=== PATIENT | female | born 1985 | race Caucasian/White ===

== ENCOUNTER 2016-04-01 14:12 | Emergency (ER) | payer MEDICAID ==
[~2016-04-01] VITALS: Wt 75.0 kg
[2016-04-01] MEDS ORDERED: IBUP-1542 PO (15:13)
--- NOTE | 2016-04-01 18:01 | ERD ---
ER Documentation Chief Complaint Date/Time DATE: 04/01/16 TIME: 17:58 Chief Complaint CHETS PAIN X 3 DAYS HPI 32-year-old female complaining of left-sided chest pain. Pain first onset 2 days ago, there were sharp extends from left axilla to left anterior chest. Pain will last about 1 minutes each, 5-6 episodes per day. Patient reports feeling increased stress at home and work. Denies shortness of breath. Denies palpitations. ROS All systems reviewed and are negative except as per history of present illness. Medications Home Meds Active Scripts Ibuprofen* (Motrin*) 600 Mg Tab, 600 MG PO Q6H Y for PAIN AND OR ELEVATED TEMP, #30 TAB Prov:BEVERLEYTREMAYNE X. DIRECTOR OF SUSTAINABLE DESIGN 04/01/16 Allergies Allergies: Coded Allergies: No Known Allergy (Unverified , 05/03/14) PMhx/Soc Medical and Surgical Hx: pt denies Medical Hx, pt denies Surgical Hx Physical Exam Vitals Vital Signs Date Time Temp Pulse Resp B/P Pulse Ox O2 Delivery O2 Flow Rate FiO2 04/01/16 14:14 98.0 74 18 147/70 99 Physical Exam General impression: Well-developed, well-nourished. Alert, oriented, in no acute distress Neck: Supple, nontender. No lymphanopathy. No nuchal rigidity. Respiration: Normal respiratory effort. Lungs clear to auscultate bilaterally. No wheezes, rales or rhonchi. Cardiovascular: Regular rate and rhythm. No murmurs or extra heart sounds. Left anterior chest wall tenderness to palpation. Neuro: Mental status normal, speech normal. Skin: Normal turgor. No rash or lesions. Psych: Normal mood and affect. Procedures/MDM EKG: Normal sinus rhythm, normal axis. No ST segment elevation or depression. No ectopic beats. No QT prolongation. No other EKG abnormalities. EKG read by Dr. Selby. Low suspicion for acute coronary syndrome, aortic dissection, pneumonia, pneumothorax, or PE. Patient has reproducible chest wall tenderness to palpation. Likely patient chest pain was from costochondritis. Patient appears well, stable for discharge and outpatient management. Medical decision making shared with patient and family. Education provided to patient and family. Patient and family expressed understanding of the plan. Medications on discharge: Ibuprofen. Follow-up: Primary care provider in 2-3 days or return to ED if worse. Departure Diagnosis: Primary Impression: Costochondritis Condition: Stable Patient Instructions: Chest Wall Pain, Costochondritis [facility] Usted se castaneda hecho un examen mdico de control que le indica que no est en danny condicin que requiera tratamiento urgente en el Departamento de Emergencia. Un estudio ms profundo y el tratamiento de russo condicin pueden esperar sin ningn riesgo hasta que usted sea atendida/o en el consultorio de russo mdico o danny cl estevan. Es responsabilidad suya arreglar danny melissa para el seguimiento del adin. MANEJO DE CONDICIONES NO URGENTES EN EL FUTURO 1) Si usted tiene un mdico de atencin primaria: Usted debera llamar a russo mdico de atencin primaria antes de venir al departamento de emergencia. Despus de las horas de consultorio, russo doctor o russo asociado/a est disponible por telfono. El mdico o enfermero de bertin en el servicio telefnico puede asesorarle por binu medio para atender el problema, o adin contrario se puede programar danny melissa. 2) Si usted no tiene un mdico de atencin primaria: Llame al mdico o clnica de referencia que aparece abajo nicole las horas de consultorio para hacer danny melissa para que le vean. CLINICAS: [facility] [phone] [facility] [phone] [facility] [phone] [address] [facility]. [facility] [phone] [address] [facility] [phone] [address] [facility]. [phone] [facility] Additional Instructions: Llame al doctor MAANA y alex danny MELISSA PARA DENTRO DE 2-3 BENZ.Dgale a la secretaria que nosotros le instruimos hacer esta melissa.Avise o llame si russo condicin se empeora antes de la melissa. Regresa aqui si peor o no mejor. TREMAYNE LOWERY NP Apr 01, 2016 18:01
== END 2016-04-01 15:29 | disposition home or self-care (01) ==
LOC: FTE 14:12
DX: M94.0 Chondrocostal junction syndrome [Tietze] (principal)
CPT/HCPCS: 93005; 99283

== ENCOUNTER 2017-12-06 20:40 | Emergency (ER) | END 2017-12-06 23:30 | disposition home or self-care (01) ==

== ENCOUNTER 2018-04-03 12:15 | Emergency (ER) | payer MEDICAID ==
[~2018-04-03] VITALS: Ht 157.5 cm; Wt 71.6 kg
[~2018-04-03 12:15] MED LIST: CARB15DR50 RIGHT EAR; NAPR-688 PO
[2018-04-03 12:21] VITALS: BP 145/85; PULSE 77; RESP 20; Ht 157.5 cm; Wt 71.6 kg
[2018-04-03] MEDS ORDERED: IOHEXOL 300MG/ML 150 ML BTL ONE (14:24)
[2018-04-03] MEDS ORDERED: SOD CHLORIDE 0.9% 100 ML ONE (14:24)
[2018-04-03] MEDS ORDERED: HYDR25SU23 PR (15:07)
[2018-04-03] MEDS ORDERED: NAPR-985 PO (15:07)
--- NOTE | 2018-04-03 15:14 | ERD ---
ER Documentation Chief Complaint Chief Complaint c/o lower abd pain radiating to back x3 days. Denies dysuria or hematuria HPI 33-year-old female presenting with rectal pain. She states is worse with sitting and lying down. She does not have a history of constipation but she does have some burning with bowel movements. No fevers. No bloody stools. No pain with urination. Denies any numbness or tingling to her legs. No recent falls. No other medical problems. NKDA. Surgical history denies. Social history denies ROS All systems reviewed and are negative except as per history of present illness. Medications Home Meds Active Scripts Naproxen* (Naprosyn*) 500 Mg Tablet, 500 MG PO BID PRN for PAIN AND/OR INFLAMMATION, #30 TAB Prov:JESSI ALVARENGA PA-C 04/03/18 Hydrocortisone Acetate (Anusol-Hc) 25 Mg Supp.rect, 1 SUPP NC BID PRN for H EMORROID PAIN/ITCHING, #12 SUPP.RECT Prov:JESSI ALVARENGA PA-C 04/03/18 Naproxen* (Naproxen*) 500 Mg Tablet, 500 MG PO BID PRN for PAIN, #20 TAB Prov:ANAHY LO DO 12/06/17 Carbamide Peroxide* (Debrox*) 6.5% - 15 Ml Drops, 10 DROP RIGHT EAR BID for 7 Days, BOTTLE Prov:ANAHY LO DO 12/06/17 Allergies Allergies: Coded Allergies: No Known Allergy (Unverified , 12/06/17) PMhx/Soc History of Surgery: No Anesthesia Reaction: No Hx Neurological Disorder: No Hx Respiratory Disorders: No Hx Cardiac Disorders: No Hx Psychiatric Problems: No Hx Miscellaneous Medical Probl: No Hx Alcohol Use: No Hx Substance Use: No Hx Tobacco Use: No FmHx Family History: No diabetes, No coronary disease, No other Physical Exam Vitals Vital Signs Date Temp Pulse Resp B/P (MAP) Pulse Ox O2 O2 Flow FiO2 Time Delivery Rate 04/03/18 98.6 77 20 145/85 98 12:21 (105) Physical Exam GENERAL: The patient is well-appearing, well-nourished, in no acute distress CHEST: Clear to auscultation bilaterally. There are no rales, wheezes or rhonchi. HEART: Regular rate and rhythm. No murmurs, clicks, rubs or gallops. No S3 or S4. ABDOMEN:Soft, nontender and nondistended. Good bowel sounds. No rebound or guarding. No gross peritonitis. No gross organomegaly or masses. No Moreno sign or McBurney point tenderness. SKIN: There is no apparent rash or petechiae. The skin is warm and dry. RECTAL: No abnormal findings noted around the rectum. No erythema. Patient has some mild pain with insertion of the finger. Result Diagram: 04/03/18 1335 04/03/18 1335 Results 24 hrs Laboratory Tests Test 04/03/18 13:35 White Blood Count 7.6 10^3/ul Red Blood Count 4.40 10^6/ul Hemoglobin 13.0 g/dl Hematocrit 38.3 % Mean Corpuscular Volume 87.0 fl Mean Corpuscular Hemoglobin 29.5 pg Mean Corpuscular Hemoglobin Concent 33.9 g/dl Red Cell Distribution Width 12.5 % Platelet Count 247 10^3/UL Mean Platelet Volume 11.1 fl Immature Granulocytes % 0.300 % Neutrophils % 67.6 % Lymphocytes % 25.8 % Monocytes % 5.7 % Eosinophils % 0.3 % Basophils % 0.3 % Nucleated Red Blood Cells % 0.0 /100WBC Immature Granulocytes # 0.020 10^3/ul Neutrophils # 5.1 10^3/ul Lymphocytes # 2.0 10^3/ul Monocytes # 0.4 10^3/ul Eosinophils # 0.0 10^3/ul Basophils # 0.0 10^3/ul Nucleated Red Blood Cells # 0.0 10^3/ul Urine Color COLORLESS Urine Clarity CLEAR Urine pH 6.0 Urine Specific [place] 1.002 Urine Ketones NEGATIVE mg/dL Urine Nitrite NEGATIVE mg/dL Urine Bilirubin NEGATIVE mg/dL Urine Urobilinogen NEGATIVE mg/dL Urine Leukocyte Esterase NEGATIVE Miguel A/ul Urine Microscopic RBC 0 /HPF Urine Microscopic WBC 0 /HPF Urine Hemoglobin 1+ mg/dL Urine Glucose NEGATIVE mg/dL Urine Total Protein NEGATIVE mg/dl Urine Test NEGATIVE Sodium Level 143 mmol/L Potassium Level 3.6 mmol/L Chloride Level 103 mmol/L Carbon Dioxide Level 22 mmol/L Anion Gap 18 Blood Urea Nitrogen 7 mg/dl Creatinine 0.70 mg/dl Est Glomerular Filtrat Rate mL/min > 60 mL/min Glucose Level 101 mg/dl Calcium Level 9.5 mg/dl Total Bilirubin 0.3 mg/dl Direct Bilirubin 0.00 mg/dl Indirect Bilirubin 0.3 mg/dl Aspartate Amino Transf (AST/SGOT) 25 IU/L Alanine Aminotransferase (ALT/SGPT) 18 IU/L Alkaline Phosphatase 73 IU/L Total Protein 8.9 g/dl Albumin 4.8 g/dl Globulin 4.10 g/dl Albumin/Globulin Ratio 1.17 Lipase 121 U/L Current Medications Medications Dose Sig/Hannah Start Time Status Last (Trade) Ordered Route PRN Stop Time Admin Dose Reason Admin IV Flush 10 ml STK-MED 04/03/18 DC 04/03/18 (NS 10 ml) ONCE .ROUTE 14:24 14:50 04/03/18 14:25 Sodium 100 ml @ ud STK-MED 04/03/18 DC 04/03/18 Chloride ONCE .ROUTE 14:24 14:49 04/03/18 14:25 Iohexol 150 ml STK-MED 04/03/18 DC 04/03/18 (Omnipaque ONCE .ROUTE 14:24 14:49 300mg/ ml) 04/03/18 14:25 Procedures/MDM DIAGNOSTIC IMAGING REPORT Patient: BRYANT CAI : 1985 Age: 33 Sex: F MR #: [id number] DOS: 04/03/18 1318 Ordering MD: CATARINO ALVARENGA PA-C Location: [facility] Room/Bed: PROCEDURE: CT abdomen and pelvis with contrast CLINICAL INDICATION: Abdominal pain TECHNIQUE: Continues 2.5 mm axial images were obtained from the domes of the diaphragms to the inferior pubic rami following intravenous injection of 90 cc of Isovue 300. The calculated dose length product (DLP) = 497.20 mGy-cm. Exam CTDlvol = 9.52 mGy. One or more of the following dose reduction techniques were used: Automated exposure control, adjustment of the mA and or KV according to patient size, or use of iterative reconstruction technique. DICOM images are available. COMPARISON: None. FINDINGS: The lung bases are clear. No pleural pericardial fluid is seen. Liver, gallbladder, pancreas, spleen, adrenals, and kidneys are within normal limits. No obstructive uropathy seen. Aorta is normal in caliber. There are no pathologically enlarged mesenteric lymph nodes. Stomach and small bowel loops are within normal limits. There is no small bowel dilatation or obstruction. No free fluid, free air, abscess is noted in the upper abdomen CT pelvis: Images through the pelvis demonstrate no free fluid, free air, abscess. Bladder is normally distended grossly unremarkable. Uterus is within normal limits. Small follicles are noted in both ovaries. Evaluation of the colon demonstrates no diverticulosis, diverticulitis or acute colitis. Normal appendix and terminal ileum are identified. There are no pathologically enlarged iliac chain lymph nodes. No destructive bony lesions are seen. There is a 1 cm lucent area within the L1 vertebral body is nonspecific. IMPRESSION: 1. No free fluid, free air, abscess is noted in the abdomen or pelvis. 2. Normal appendix and terminal ileum. 3. Bilateral ovarian follicles. If indicated this can be better evaluated with pelvic ultrasound. 3. 1 cm lucent lesion within the L1 vertebral body which is nonspecific. If ind icated this can be better evaluated with MRI MDM: 33-year-old female presenting with pain around the anus. CT scans within normal limits and exam is non-concerning. Patient may have internal hemo rrhoids. I will treat with hemorrhoid medications. I have low suspicion for colitis. I have low suspicion for abscess formation. Patient is discharged stricter precautions and told to follow-up with primary care within 1-2 days for close evaluation. Patient is told if symptoms change or worsen to return immediately to the ER. All questions answered at discharge Departure Diagnosis: Primary Impression: Rectal pain Condition: Stable Patient Instructions: Pain, Uncertain Cause (Acute) Referrals: [facility] YOU HAVE RECEIVED A MEDICAL SCREENING EXAM AND THE RESULTS INDICATE THAT YOU DO NOT HAVE A CONDITION THAT REQUIRES URGENT TREATMENT IN THE EMERGENCY DEPARTMENT. FURTHER EVALUATION AND TREATMENT OF YOUR CONDITION CAN WAIT UNTIL YOU ARE SEEN IN YOUR DOCTORS OFFICE WITHIN THE NEXT 1-2 DAYS. IT IS YOUR RESPONSIBILITY TO MAKE AN APPOINTMENT FOR FOLOW-UP CARE. IF YOU HAVE A PRIMARY DOCTOR --you should call your primary doctor and schedule an appointment IF YOU DO NOT HAVE A PRIMARY DOCTOR YOU CAN CALL OUR PHYSICIAN REFERRAL HOTLINE AT IF YOU CAN NOT AFFORD TO SEE A PHYSICIAN YOU CAN CHOSE FROM THE FOLLOWING [facility] [address] [facility]. [facility] [address] [facility] [facility] [address] [employer] [facility] [address] [facility]. [facility] [address] [facility]. [facility] [address] Additional Instructions: FOLLOW UP WITH YOUR PRIMARY CARE PHYSICIAN TOMORROW.Return to this facility if y ou are not improving as expected. JESSI ALVARENGA PA-C Apr 03, 2018 15:14
== END 2018-04-03 15:32 | disposition home or self-care (01) ==
LOC: FTE 12:15
DX: K62.89 Other specified diseases of anus and rectum (principal)
CPT/HCPCS: 36415; 74177; 80053; 81001; 83690; 84703; 85025; Q9967; Z7502; Z7610

== ENCOUNTER 2018-05-17 21:57 | Emergency (ER) | payer SELFPAY ==
[~2018-05-17] VITALS: Wt 72.4 kg
[~2018-05-17 21:57] MED LIST changes: +HYDR25SU23 PR; +NAPR-985 PO
[2018-05-17 22:14] VITALS: BP 175/94; PULSE 86; RESP 20
== END 2018-05-18 01:58 | disposition left against medical advice (07) ==
LOC: FTE 21:57
DX: Z53.21 Procedure and treatment not carried out due to patient leaving prior to being seen by health care provider (principal)

== ENCOUNTER 2018-08-05 16:38 | Emergency (ER) | payer MEDICAID ==
[~2018-08-05] VITALS: Ht 162.6 cm; Wt 71.3 kg
[2018-08-05 16:42] VITALS: BP 140/81; PULSE 86; RESP 18; Ht 162.6 cm; Wt 71.3 kg
[2018-08-05] MEDS ORDERED: CARB-155 BOTH EARS (17:27)
--- NOTE | 2018-08-05 17:40 | ERD ---
ER Documentation Chief Complaint Chief Complaint LT EAR PAIN X 2 DAYS HPI 33-year-old female presents with left ear pain for the past 2 days. She reports that she recently went to her dentist about 3 days ago who took out her tooth due to an infection and was given amoxicillin 500 mg daily. Reports that her ear pain started 2 days ago and is located on the same side that the dental procedure was done. She reports a slight sore throat but denies any fevers, chills, respiratory compromise. She used reports that there are 2 bumps located on her inner ear were brought up 2 days ago also. She states that her right ear is fine and has no issues. She denies history of frequent ear infections, recent swimming, or pain located on the mastoid process. She reports a history of heavy cerumen impaction in both ears. She has been prescribed Debrox in the past but states that she does not know how to use it properly. ROS All systems reviewed and are negative except as per history of present illness. Medications Home Meds Active Scripts Carbamide Peroxide* (Debrox*) 6.5% -15 Ml Drops, 10 DROP BOTH EARS BID for 7 Days, EA Prov:ALICIA CULP PA-C 08/05/18 Naproxen* (Naprosyn*) 500 Mg Tablet, 500 MG PO BID PRN for PAIN AND/OR INFLAMMATION, #30 TAB Prov:JESSI ALVARENGA PA-C 04/03/18 Hydrocortisone Acetate (Anusol-Hc) 25 Mg Supp.rect, 1 SUPP MS BID PRN for HEMORROID PAIN/ITCHING, #12 SUPP.RECT Prov:JESSI ALVARENGA PA-C 04/03/18 Naproxen* (Naproxen*) 500 Mg Tablet, 500 MG PO BID PRN for PAIN, #20 TAB Prov:ANAHY LO DO 12/06/17 Carbamide Peroxide* (Debrox*) 6.5% - 15 Ml Drops, 10 DROP RIGHT EAR BID for 7 Days, BOTTLE Prov:ANAHY LO DO 12/06/17 Allergies Allergies: Coded Allergies: No Known Allergy (Unverified , 12/06/17) PMhx/Soc Medical and Surgical Hx: pt denies Medical Hx, pt denies Surgical Hx History of Surgery: No Anesthesia Reaction: No Hx Neurological Disorder: No Hx Respiratory Disorders: No Hx Cardiac Disorders: No Hx Psychiatric Problems: No Hx Miscellaneous Medical Probl: No Hx Alcohol Use: No Hx Substance Use: No Hx Tobacco Use: No Smoking Status: Never smoker FmHx Family History: diabetes Physical Exam Vitals Vital Signs Date Temp Pulse Resp B/P (MAP) Pulse Ox O2 O2 Flow FiO2 Time Delivery Rate 08/05/18 98.3 86 18 140/81 99 16:42 (100) Physical Exam GENERAL: The patient is well-appearing, well-nourished, in no acute distress HEENT: Atraumatic, several dental carries present. Recent tooth removal on left upper gums. Conjunctivae are pink. Oropharynx clear. Right ear: nontender Severely impacted cerumen, unable to visualize TM Left ear: 2 small clear bump lesions present on outside of ear cannal. Cannal with mild cerumen. TM nonbuldi ng, good COL. Lungs: CTAB SKIN: There is no apparent rash or petechiae. The skin is warm and dry. HEMATOLOGIC AND LYMPHATIC: There is no evidence of excessive bruising Procedures/MDM ED COURSE: The patient was stable throughout ED course. I kept the patient and family informed of laboratory and diagnostic imaging results throughout the ED course. MEDICAL DECISION MAKING: Patient is a 33-year-old female presenting with left ear pain x2 days. She has a history of dental caries and was recently seen by her dentist 3 days ago extracted a tooth on the upper left gumline. The dentists provided her with amoxicillin for 8 days which the patient is currently taking. Patient had concern for an ear infection however during physical exam the ear canal and tympanic membrane looked noninfectious. H&P and other data not c/w emergent process (eg. MIGUEL, meningitis, mastoiditis) vital signs were reviewed. Patient is afebrile. Patient was not hypoxic. Patient was hemodynamically stable. She will continue amoxicillin course and was told to return to ER symptoms do not improve or worsen PRESCRIPTION: Debrox and continue amoxicillin DISCHARGE: At this time, patient is stable for discharge and outpatient management. I have instructed the patient to follow-up with his/her primary care physician in 1-2 days. I have discussed with the patient the possibility of needing to see a specialist for further workup and imaging studies if symptoms persist. I have instructed the patient to promptly return to the ER for any new or worsening symptoms including increased pain, fever, nausea, vomiting, weakness or LOC. The patient and/or family expressed understanding of and agreement with this plan. All questions were answered. Home care instructions were provided. Disclaimer: Inadvertent spelling and grammatical errors are likely due to EHR/dictation software use and do not reflect on the overall quality of patient care. Also, please note that the electronic time recorded on this note does not necessarily reflect the actual time of the patient encounter. Departure Diagnosis: Primary Impression: Cerumen impaction Laterality: bilateral Qualified Codes: H61.23 - Impacted cerumen, bilateral Additional Impression: Left ear pain Condition: Fair Patient Instructions: Earache W/O Infection (Adult), Ear Wax, Treated Referrals: [facility] YOU HAVE RECEIVED A MEDICAL SCREENING EXAM AND THE RESULTS INDICATE THAT YOU DO NOT HAVE A CONDITION THAT REQUIRES URGENT TREATMENT IN THE EMERGENCY DEPARTMENT. FURTHER EVALUATION AND TREATMENT OF YOUR CONDITION CAN WAIT UNTIL YOU ARE SEEN IN YOUR DOCTORS OFFICE WITHIN THE NEXT 1-2 DAYS. IT IS YOUR RESPONSIBILITY TO MAKE AN APPOINTMENT FOR FOLOW-UP CARE. IF YOU HAVE A PRIMARY DOCTOR --you should call your primary doctor and schedule an appointment IF YOU DO NOT HAVE A PRIMARY DOCTOR YOU CAN CALL OUR PHYSICIAN REFERRAL HOTLINE AT IF YOU CAN NOT AFFORD TO SEE A PHYSICIAN YOU CAN CHOSE FROM THE FOLLOWING [facility] [address] [facility]. [facility] [address] [facility]. [facility] [address] [facility]. [facility] [address] [facility]. [facility] [address] [facility]. [facility]. [address] [facility]. [facility] YOU HAVE RECEIVED A MEDICAL SCREENING EXAM AND THE RESULTS INDICATE THAT YOU DO NOT HAVE A CONDITION THAT REQUIRES URGENT TREATMENT IN THE EMERGENCY DEPARTMENT. FURTHER EVALUATION AND TREATMENT OF YOUR CONDITION CAN WAIT UNTIL YOU ARE SEEN IN YOUR DOCTORS OFFICE WITHIN THE NEXT 1-2 DAYS. IT IS YOUR RESPONSIBILITY TO MAKE AN APPOINTMENT FOR FOLOW-UP CARE. IF YOU HAVE A PRIMARY DOCTOR --you should call your primary doctor and schedule and appointment IF YOU DO NOT HAVE A PRIMARY DOCTOR YOU CAN CALL OUR PHYSICIAN REFERRAL HOTLINE AT . IF YOU CAN NOT AFFORD TO SEE A PHYSICIAN YOU CAN CHOSE FROM THE FOLLOWING [facility] INSTITUTIONS: [facility] [address] [place] [address] [facility] [address] [place] [address] [facility] [address] [place] [address] Additional Instructions: Call 1 of the community clinics or hospitals and ask for primary care provider that can do ear irrigation cleaning Call your primary care doctor TOMORROW for an appointment during the next 1-2 days.See the doctor sooner or return here if your condition worsens before your appointment time. ALICIA CULP PA-C Aug 05, 2018 17:40
== END 2018-08-05 17:33 | disposition home or self-care (01) ==
LOC: FTE 16:38
DX: H61.23 Impacted cerumen, bilateral (principal)
CPT/HCPCS: 99282

== ENCOUNTER 2018-09-20 17:55 | Emergency (ER) | payer MEDICAID ==
[~2018-09-20] VITALS: Ht 162.6 cm; Wt 70.9 kg
[~2018-09-20 17:55] MED LIST changes: +CARB-155 BOTH EARS
[2018-09-20 18:08] VITALS: BP 147/76; PULSE 72; RESP 20; Ht 162.6 cm; Wt 70.9 kg
[2018-09-20] MEDS ORDERED: IBUP-1542 PO (18:56)
--- NOTE | 2018-09-21 17:16 | ERD ---
ER Documentation Chief Complaint Chief Complaint back pain x 1 week HPI 33-year-old female presents complaint of back pain for the last week. Patient has been here in the past for back pain received a CT scan of her back which showed a lesion in the lumbar area but she states she never followed up with an orthopedist for the MRI which was recommended on the scan. Patient denies any injuries. Patient is ambulatory. Denies chest pain, SOB, flank pain, dsyuria, hematuria, saddle numbness, incontinence, pain worse at night or when supine, weight loss, night sweats, fatigue, focal neurological defecits, recent bacterial infection, IV drug use, or immunosuppression. Denies past medical history. Denies allergies. Denies surgeries. Denies ETOH, drug, or tobacco use. ROS All systems reviewed and are negative except as per history of present illness. Medications Home Meds Active Scripts Ibuprofen* (Motrin*) 600 Mg Tab, 600 MG PO Q6, #30 TAB Prov:LINDA BARAJAS 09/20/18 Carbamide Peroxide* (Debrox*) 6.5% -15 Ml Drops, 10 DROP BOTH EARS BID for 7 Days, EA Prov:ALICIA CULP PA-C 08/05/18 Naproxen* (Naprosyn*) 500 Mg Tablet, 500 MG PO BID PRN for PAIN AND/OR INFLAMMATION, #30 TAB Prov:JESSI ALVARENGA PA-C 04/03/18 Hydrocortisone Acetate (Anusol-Hc) 25 Mg Supp.rect, 1 SUPP LA BID PRN for HEMORROID PAIN/ITCHING, #12 SUPP.RECT Prov:JESSI ALVARENGA PA-C 04/03/18 Naproxen* (Naproxen*) 500 Mg Tablet, 500 MG PO BID PRN for PAIN, #20 TAB Prov:ANAHY LO DO 12/06/17 Carbamide Peroxide* (Debrox*) 6.5% - 15 Ml Drops, 10 DROP RIGHT EAR BID for 7 Days, BOTTLE Prov:ANAHY LO DO 12/06/17 Allergies Allergies: Coded Allergies: No Known Allergy (Unverified , 12/06/17) PMhx/Soc Medical and Surgical Hx: pt denies Medical Hx, pt denies Surgical Hx History of Surgery: No Anesthesia Reaction: No Hx Neurological Disorder: No Hx Respiratory Disorders: No Hx Cardiac Disorders: No Hx Psychiatric Problems: No Hx Miscellaneous Medical Probl: No Hx Alcohol Use: No Hx Substance Use: No Hx Tobacco Use: No Smoking Status: Never smoker FmHx Family History: No diabetes, No coronary disease, No other Physical Exam Vitals Vital Signs Date Temp Pulse Resp B/P (MAP) Pulse Ox O2 O2 Flow FiO2 Time Delivery Rate 09/20/18 98.5 72 20 147/76 99 18:08 (99) Physical Exam C const: No acute distress Head: Atraumatic Eyes: Normal Conjunctiva ENT: Normal External Ears, Nose and Mouth. Neck: Full range of motion. No meningismus. Resp: Clear to auscultation bilaterally Cardio: Regular rate and rhythm, no murmurs Abd: Soft, non tender, non distended. Normal bowel sounds Skin: No petechiae or rashes Back: No midline or flank tenderness. Full range of motion. No bony deformities or step-offs noted. Ext: No cyanosis, or edema. Distal pulses and sensation intact. 5/5 streng th in lower extremities bilaterally. No saddle numbness. Neur: Awake and alert Psych: Normal Mood and Affect Results 24 hrs Laboratory Tests Test 09/20/18 18:42 09/20/18 18:47 Bedside Urine pH (LAB) 5.5 Bedside Urine Protein (LAB) Negative Bedside Urine Glucose (UA) Negative Bedside Urine Ketones (LAB) Negative Bedside Urine Blood Trace-lysed Bedside Urine Nitrite (LAB) Negative Bedside Urine Leukocyte Esterase (L Negative POC Beta HCG, Qualitative NEGATIVE Procedures/MDM MDM: Patient was advised that she needs to follow-up with an MRI as this was the recommendation given the last time she came here with complaint of back pain and CT was performed. Patient agreed to do this. Patient stated she wanted urine dip, results WNL. I have low suspicion for epidural abscess, cauda equina, abdominal aortic aneurysm, pyelonephritis, aortic dissection, spinal fracture, or other emergent conditions based on patient history and exam findings. Patient told if they experience leg weakness or numbness, or incontinence they need to return to the ER immediately. At this time, patient is stable for discharge and outpatient management. I have instructed the patient to follow-up with his/her primary care physician in 1-2 days. I have discussed with the patient the possibility of needing to see a spe cialist for further workup and imaging studies if symptoms persist. I have instructed the patient to promptly return to the ER for any new or worsening symptoms including but not limited to increased pain, fever, nausea, vomiting, weakness or LOC. The patient and/or family expressed understanding of and agreement with this plan. All questions were answered. Home care instructions w ere provided. Communication with patient both during the exam and instructions for discharge were performed with using a field artillery basic . Patient gave verbal confirmation to the practitioner, through the field artillery basic, that they understood everything that was being said to them. DISCLAIMER: Inadvertent spelling and grammatical errors are likely due to EHR/dictation software use and do not reflect on the overall quality of patient care. Also, please note that the electronic time recorded on this note does not necessarily reflect the actual time of the patient encounter. Departure Diagnosis: Primary Impression: Back pain Condition: Stable Patient Instructions: Back Pain (Acute Or Chronic) Referrals: [facility] YOU HAVE RECEIVED A MEDICAL SCREENING EXAM AND THE RESULTS INDICATE THAT YOU DO NOT HAVE A CONDITION THAT REQUIRES URGENT TREATMENT IN THE EMERGENCY DEPARTMENT. FURTHER EVALUATION AND TREATMENT OF YOUR CONDITION CAN WAIT UNTIL YOU ARE SEEN IN YOUR DOCTORS OFFICE WITHIN THE NEXT 1-2 DAYS. IT IS YOUR RESPONSIBILITY TO MAKE AN APPOINTMENT FOR FOLOW-UP CARE. IF YOU HAVE A PRIMARY DOCTOR --you should call your primary doctor and schedule an appointment IF YOU DO NOT HAVE A PRIMARY DOCTOR YOU CAN CALL OUR PHYSICIAN REFERRAL HOTLINE AT IF YOU CAN NOT AFFORD TO SEE A PHYSICIAN YOU CAN CHOSE FROM THE FOLLOWING [facility] [id number] [facility]. [facility] [address] [facility] [facility] [facility] [address] [facility] [facility] [address] [facility]. [facility] [address] [facility]. [facility]. [address] Additional Instructions: FOLLOW UP WITH YOUR PRIMARY CARE PHYSICIAN TOMORROW. Bring your primary care physician a copy of the CT scan result that was performed in March of this year which recommends an MRI. Please try and get a referral for an MRI. Eturn to this facility if you are not improving as expected. LINDA BARAJAS Sep 21, 2018 17:16
== END 2018-09-20 19:09 | disposition home or self-care (01) ==
LOC: FTE 17:55
DX: M54.9 Dorsalgia, unspecified (principal)
CPT/HCPCS: 81003; 81025; Z7502; 99282